=== PATIENT | female | born 1970 | race Caucasian/White ===

== ENCOUNTER 2019-09-06 09:43 | Outpatient (CLI) | payer OTHER, SELFPAY ==
--- NOTE | 2019-09-06 09:45 | MM_ITS ---
WS: [id number] BILATERAL DIGITAL SCREENING MAMMOGRAPHY WITH CAD CLINICAL INFORMATION: SCREENING HISTORY: Screening mammogram. No current complaints. COMPARISON: August 03, 2018 TECHNIQUE: Bilateral CC and MLO views. FINDINGS: Scattered fibroglandular densities bilaterally. A few tiny punctate calcifications stable. No suspici ous focal mass, asymmetry, calcifications, or architectural distortion. No evidence of malignancy. MM/[place] [id number] IMPRESSION: BI-RADS: 2-Benign FOLLOW UP: 1 Year Follow-up Recommend return to annual screening mammography.
== END 2019-09-06 09:44 | disposition home or self-care (01) ==
LOC: RADSHAW 09:44
PROVIDERS: Family Provider Nurse Practitioner Family; PCP Nurse Practitioner Family; Visit Provider Nurse Practitioner Family
DX: Z12.31 Encounter for screening mammogram for malignant neoplasm of breast (principal)
CPT/HCPCS: 77067

== ENCOUNTER 2020-10-11 14:31 | Outpatient (CLI) | payer OTHER, SELFPAY ==
--- NOTE | 2020-10-11 14:36 | MM_ITS ---
WS: [id number] BILATERAL DIGITAL SCREENING MAMMOGRAPHY WITH CAD CLINICAL INFORMATION: SCREENING HISTORY: Screening mammogram. No current complaints. COMPARISON: September 06, 2019, July 2018, and May 2012 TECHNIQUE: Bilateral CC and MLO views. FINDINGS: Scattered fibroglandular densities bilaterally. Increasing 6 mm focal asymmetric density upper outer left breast best seen on the MLO view. Recommend further evaluation with left diagnostic mammography and ultrasound. Right breast is unremarkable and unchanged. Vascular and punctate calcifications. Clustered calcifica tions. MM/[place] [id number] IMPRESSION: BI-RADS: 0-Incomplete: Need additional imaging evaluation FOLLOW UP: Need Additional Imaging RECOMMEND LEFT BREAST DIAGNOSTIC MAMMOGRAPHY AND ULTRASOUND
== END 2020-10-11 14:32 | disposition home or self-care (01) ==
LOC: RADSHAW 14:35
PROVIDERS: Family Provider Nurse Practitioner Family; PCP Nurse Practitioner Family; Visit Provider Nurse Practitioner Family
DX: Z12.31 Encounter for screening mammogram for malignant neoplasm of breast (principal)
CPT/HCPCS: 77067

== ENCOUNTER 2020-10-17 10:19 | Outpatient (CLI) | payer OTHER, SELFPAY ==
--- NOTE | 2020-10-17 10:36 | US_ITS ---
WS: [id number] LEFT DIGITAL MAMMOGRAPHY WITH CAD CLINICAL INFORMATION: LT BREAST ASYMMETRIC DENSITY COMPARISON: October 11, 2020 TECHNIQUE: 3 views of the left breast were obtained. FINDINGS: Scattered fibroglandular densities of the left breast. Previously described 6 mm focal asymmetric den sity upper outer left breast partially compresses out on the diagnostic views with some persistent as ymmetric tissue. Ultrasound is pending. ULTRASOUND BREAST LEFT TECHNIQUE: Ultrasound left breast focused area of concern. CLINICAL INFORMATION: LT BREAST ASYMMETRIC DENSITY COMPARISON: None. FINDINGS: Ultrasound left breast the 12:00 position 3 cm from the nipple. Hypoechoic taller than wide lesion at the 12:00 position. This lesion is indeterminant and recommend further evaluation with ultrasound gu ided biopsy. Hypoechoic lesion measures 8.1 x 5.5 x 3.2 mm US/US breast LT limited* [id number] IMPRESSION: BI-RADS: 4-Suspicious Finding-Biopsy Should Be Considered FOLLOW UP: US Guided Biopsy Recommended
== END 2020-10-17 10:20 | disposition home or self-care (01) ==
LOC: RADSHAW 10:21
PROVIDERS: Family Provider Nurse Practitioner Family; PCP Nurse Practitioner Family; Visit Provider Nurse Practitioner Family
DX: R92.8 Other abnormal and inconclusive findings on diagnostic imaging of breast (principal)
CPT/HCPCS: 76642; 77065

== ENCOUNTER 2021-05-06 13:37 | Outpatient (CLI) | payer OTHER, SELFPAY ==
--- NOTE | 2021-05-06 13:50 | US_ITS ---
WS: [id number] LEFT DIGITAL MAMMOGRAPHY WITH CAD CLINICAL INFORMATION: 6 MO F/U LT BREAST/ABNORMAL/INCONCLUSIVE FINDING ON DIAG COMPARISON: October 17, 2020 TECHNIQUE: 5 views of the left breast were obtained. FINDINGS: 6 month follow-up Scattered fibroglandular densities of the left breast. Previously described asymmetric breast tissue at the 12:00 position is less dense today and compresses out on the spot compression views Ultrasound is pending. ULTRASOUND BREAST LEFT TECHNIQUE: Ultrasound left breast focused area of concern. CLINICAL INFORMATION: 6 MO F/U LT BREAST/ABNORMAL/INCONCLUSIVE FINDING ON DIAG COMPARISON: October 17, 2020 FINDINGS: Ultrasound left breast 12:00 position. No suspicious underlying cystic or solid lesions. Normal under lying breast tissue. No lesions to target for biopsy. Previously described hypoechoic lesion on the 10/17/20 ultrasound likely represented dense parenchymal tissue. Recommend additional six-month follow-up to confirm stability. US/US breast LT limited* [id number] IMPRESSION: BI-RADS: 3-Probably Benign FOLLOW UP: 6 Month Follow-up Recommend additional left breast diagnostic mammography and ultrasound in 6 thu ths to confirm resolution of the previously described 12:00 lesion
== END 2021-05-06 13:38 | disposition home or self-care (01) ==
LOC: RADSHAW 13:39
PROVIDERS: PCP Nurse Practitioner Family; Visit Provider Nurse Practitioner Family
DX: R92.8 Other abnormal and inconclusive findings on diagnostic imaging of breast (principal); N63.25 Unspecified lump in the left breast, overlapping quadrants
CPT/HCPCS: 76642; 77065

== ENCOUNTER 2021-11-12 09:35 | Outpatient (CLI) | payer OTHER, SELFPAY ==
--- NOTE | 2021-11-12 | US_ITS ---
WS: [id number] DIAGNOSTIC BILATERAL DIGITAL BREAST TOMOSYNTHESIS MAMMOGRAPHY WITH CAD LEFT breast ultrasound, limited HISTORY: 6 MO F/U ASYMMETRIC TISSUE COMPARISON: 05/06/2021, 10/18/2019 and 10/11/2020 TECHNIQUE: Bilateral craniocaudad, mediolateral oblique, and mediolateral views are submitted with to mosynthesis and SM. Computer aided detection utilized. Breast composition: There are scattered areas of fibroglandular density. The asymmetry noted in the c entral LEFT breast on prior imaging studies is no longer present. There are a few benign stable calci fications scattered throughout each breast. LEFT breast ultrasound, limited. Ultrasound is directed to the 12:00 axis of the LEFT breast in the area of the previously described l esion. There is no abnormality on today's examination. US/US breast LT limited* [id number] IMPRESSION: BI-RADS: 2-Benign FOLLOW UP: 1 Year Follow-up Return to annual screening mammography. The previously described lesion in the LEFT breast is no longer apparent.
--- NOTE | 2021-11-12 09:39 | MM_ITS ---
WS: [id number] DIAGNOSTIC BILATERAL DIGITAL BREAST TOMOSYNTHESIS MAMMOGRAPHY WITH CAD LEFT breast ultrasound, limited HISTORY: 6 MO F/U ASYMMETRIC TISSUE COMPARISON: 05/06/2021, 10/18/2019 and 10/11/2020 TECHNIQUE: Bilateral craniocaudad, mediolateral oblique, and mediolateral views are submitted with to mosynthesis and SM. Computer aided detection utilized. Breast composition: There are scattered areas of fibroglandular density. The asymmetry noted in the c entral LEFT breast on prior imaging studies is no longer present. There are a few benign stable calci fications scattered throughout each breast. LEFT breast ultrasound, limited. Ultrasound is directed to the 12:00 axis of the LEFT breast in the area of the previously described l esion. There is no abnormality on today's examination. MM/[place] [id number] IMPRESSION: BI-RADS: 2-Benign FOLLOW UP: 1 Year Follow-up Return to annual screening mammography. The previously described lesion in the LEFT breast is no longer apparent.
== END 2021-11-12 09:36 | disposition home or self-care (01) ==
LOC: RAD 09:36
PROVIDERS: PCP Nurse Practitioner Family; Visit Provider Nurse Practitioner Family
DX: N64.89 Other specified disorders of breast (principal)
CPT/HCPCS: 76642; 77062

== ENCOUNTER → 2023-08-11 09:47 | Outpatient (BNVA) | payer SELFPAY | PROVIDERS: PCP Nurse Practitioner Family; Visit Provider Dermatology | DX: Z13.6 Encounter for screening for cardiovascular disorders (principal) | CPT/HCPCS: 80061; 82947; 83036 ==

== ENCOUNTER 2023-08-12 14:44 | Outpatient (CLI) | payer OTHER, SELFPAY ==
--- NOTE | 2023-08-12 14:48 | MM_ITS ---
WS: [id number] BILATERAL 3D TOMOSYNTHESIS DIGITAL SCREENING MAMMOGRAPHY WITH CAD CLINICAL INFORMATION: SCREENING HISTORY: Screening mammogram. No current complaints. COMPARISON: 2021 TECHNIQUE: Bilateral CC and MLO views. FINDINGS: Scattered fibroglandular densities bilaterally. No suspicious focal mass, asymmetry, calcifications, or architectural distortion. No evidence of malignancy. A few incidental punctate calcifications. IMPRESSION: MM/[place] [id number] BI-RADS: 2-Benign FOLLOW UP: 1 Year Follow-up Recommend return to annual screening mammography.
== END 2023-08-12 14:45 | disposition home or self-care (01) ==
LOC: RAD 14:45
PROVIDERS: PCP Nurse Practitioner Family; Visit Provider Nurse Practitioner Family
DX: Z12.31 Encounter for screening mammogram for malignant neoplasm of breast (principal); R92.323 Mammographic fibroglandular density, bilateral breasts
CPT/HCPCS: 77063; 77067

== ENCOUNTER → 2023-10-02 09:16 | Outpatient (BNVA) | payer OTHER, SELFPAY | PROVIDERS: PCP Nurse Practitioner Family; Visit Provider Nurse Practitioner Family | DX: E66.9 Obesity, unspecified (principal); F41.9 Anxiety disorder, unspecified; E66.3 Overweight | CPT/HCPCS: 80053; 80061; 84443; 85025 ==

== ENCOUNTER → 2023-10-23 13:52 | Outpatient (BNVA) | payer OTHER, SELFPAY | PROVIDERS: PCP Nurse Practitioner Family; Visit Provider Nurse Practitioner Family | DX: R74.8 Abnormal levels of other serum enzymes (principal) | CPT/HCPCS: 80053; 86705; 86706; 86709; 86803; 87340 ==

== ENCOUNTER → 2023-12-03 13:04 | Outpatient (BNVA) | payer OTHER, SELFPAY | PROVIDERS: PCP Nurse Practitioner Family; Visit Provider Nurse Practitioner Family | DX: R74.8 Abnormal levels of other serum enzymes (principal) | CPT/HCPCS: 80053; 85025 ==

== ENCOUNTER 2023-12-15 06:56 | Outpatient (CLI) | payer OTHER, SELFPAY ==
--- NOTE | 2023-12-15 07:15 | US_ITS ---
WS: [id number] Exam: US liver [id number] Date/Time of Exam: 12/15/2023 7:01 AM Reason For Exam: Elevated liver enzymes The liver is unremarkable and measures 14.6 cm in greatest dimension. No intrahepatic or extrahepatic ductal dilatation noted. The common bile duct measures 7 mm in greatest diameter. The gallbladder oliveros rgically absent. The IVC is patent. The abdominal aorta is normal in caliber. Unremarkable RIGHT kidn ey measures 11 x 4.7 x 5 cm. The pancreas is unremarkable. No free fluid or mass in the RIGHT abdomen . US/US liver [id number] IMPRESSION: 1. Unremarkable ultrasound of the liver.
== END 2023-12-15 06:57 | disposition home or self-care (01) ==
LOC: RAD 06:56
PROVIDERS: PCP Nurse Practitioner Family; Visit Provider Nurse Practitioner Family
DX: R74.8 Abnormal levels of other serum enzymes (principal)
CPT/HCPCS: 76705

== ENCOUNTER 2024-10-07 09:43 | Outpatient (CLI) | payer OTHER, SELFPAY ==
--- NOTE | 2024-10-07 09:50 | MM_ITS ---
WS: [id number] Bilateral screening 3D tomosynthesis digital mammogram, 10/07/2024 9:58 AM Clinical Data: SCREENING Comparison: 08/12/2023, 11/12/2021, 05/06/2021, 10/17/2020, 10/11/2020. Findings: No spiculated masses or clustered calcifications are seen. There are no secondary signs of carcinoma. There are scattered benign calcifications in the posterior inferior aspect of the right breast. MM/MM scr BI tomosynthesis [id number] Impression: Negative bilateral mammogram unchanged. Recommend annual screening mammograms. BIRADS: 1 - Negative. FOLLOW UP: 1 Year Follow-up DENSITY: There are scattered areas of fibroglandular density. The CAD typing checker was used
== END 2024-10-07 09:44 | disposition home or self-care (01) ==
LOC: RAD 09:45
PROVIDERS: PCP Nurse Practitioner Family; Visit Provider Nurse Practitioner Family
DX: Z12.31 Encounter for screening mammogram for malignant neoplasm of breast (principal); R92.323 Mammographic fibroglandular density, bilateral breasts; R92.1 Mammographic calcification found on diagnostic imaging of breast
CPT/HCPCS: 77063; 77067